=== PATIENT | female | born 1980 | race Caucasian/White ===

== ENCOUNTER 2018-01-02 09:05 | Inpatient (IN) | payer BC ==
[2018-01-02 09:09] VITALS: BMI 29.5
[2018-01-02 09:13] VITALS: O2SAT 99
--- NOTE | 2018-01-02 09:13 | ED PDOC ---
Arrival/HPI - General Chief Complaint: Psychiatric Evaluation Time Seen by Provider: 01/02/18 09:08 - History of Present Illness Associated Symptoms (Text): 01/02/18 09:11 Patient was seen and evaluated at another hospital emergency department and had a crisis evaluation there. She was medically cleared previously. Therefore, no medical clearance is necessary here. No exam or review of systems is necessary. Patient states that she is depressed and had a plan to get in her car and drive off a tejas. She is aware that she is being admitted to the psychiatric floor here. Family/Social History Family/Social History: Unknown Family HX Allergies/Home Meds Allergies/Adverse Reactions: Allergies No Known Allergies Allergy (Verified 01/02/18 09:09) Disposition/Present on Arrival - Present on Arrival Any Indicators Present on Arrival: No History of DVT/PE: No History of Uncontrolled Diabetes: No Urinary Catheter: No History of Decub. Ulcer: No - Disposition Have Diagnosis and Disposition been Completed?: Yes Diagnosis: Depression, Suicidal ideation Disposition: HOSPITALIZED Disposition Time: 09:12 Patient Plan: Admission Condition: GOOD Forms: Acceptd (Burmese)
[2018-01-02] MEDS ORDERED: Magnesium Hydroxide Susp 30 ml UD PO PRN (10:32)
[2018-01-02] MEDS ORDERED: Alum-Mag Hydrox-Simethicone Susp (30 mL) PO PRN (10:32)
[2018-01-03 07:25] VITALS: RESP 20
[2018-01-03] MEDS ORDERED: Apap-Butalbital-Caffeine 325-50-40mg Tab PO PRN (13:16)
--- NOTE | 2018-01-03 13:41 | PCM.PSYCH ---
Initial Psychiatric Evaluation - Initial Psychiatric Evaluation Type of Admission: Voluntary Legal Status: Capacity (pt has capacity to sign consent for treatment) Chief Complaint (in patient's own words): "I thought my daughter would be better off without me, I also had thoughts of walking into the traffic, my aunt suggested me to go to the hospital". Patient's Reaction to Hospitalization: pt was transferred from [facility] for evaluation and stabilization of depressive symptoms, possible suicidal ideation. History of Present Illness and Precipitating Events: Shortly pt is 37here old female, self reported h/o anxiety and depression, denied previous psychiatric admissions, currently lives with her daughter, pt is on disability for the past 4weeks, was prescribed psychotropic medications by her PMD, has therapist whom she sees [id number], was transferred from the [facility] for evaluation of depressive symptoms, possible suicidal ideation and hopelessness, pt said that she had thoughts of driving off a tejas and thought of jumping in front of truck, pt also felt that her 13yo daughter "will be better off without me". pt reported being compliant with meds, pt required further evaluation and stabilization, meds titration. pt was seen at the treatment team meeting, transfer paper reviewed, discussed with staff. pt presented with acceptable personal hygiene, careless about her appearance, no make up on, looked older than chronological age. pt has good ADLs. pt said after some viral infection in October 2017 she she started to feel depressed, she had weakness, low energy, was not able to function, pt said her anxiety was getting worse as well, pt started to have frequent panic attacks, her PMD prescribed her prozac 20mg po daily, and Klonopin 1mg po tid, pt said she was feeling progressively worse, had panic attacks, pt said that most recently she was feeling hopeless and helpless, guilty that she is a bad mother. Pt believes that her anxiety and depression led her to have a syncopal episode back in October when pt was hospitalized on the medical floor. Pt reported all labs came back negative. pt said that the started to have thoughts of suicide and had "vision of myself driving into the tejas", pt also said she tried to distract herself from those thoughts and take a walk but had thoughts of jumping in front of the truck, pt shared those thoughts with her aunts and "she brought me to the hospital. (pt's 13 you daughter is with her aunt, pt gave permission to speak to her aunt). PT reports today 01[birth year]03[birth year]18 is the birthday of her daughter's father and tomorrow 07/14 is the anniversary of her mother's . PT reports her mother due to Lupus, COPD, and emphysema. "it is a bad season for me" pt denied v/t/a hallucinations, denied paranoid ideation, does not appear to be psychotic. no manic symptoms elicited. Pt denied using drugs, denies drinking alcohol, smokes e-cigarettes. past psych h/o: pt denied previous psych admissions, denied h/o suicidal attempts in the past. currently sees psychologist [id number]. Medical h/o: pt suffers from migraine headaches. pt takes Excedrin which is not available in the hospital. Family h/o: father suffers from depression/anxiety, is on prozac, tolerates well. mother's cousin committed suicide. Pt gave consent to speak to her aunt, Car Victor [phone]. Pt reports she was on disability and went back to work on December 27, 2017. 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 Vital Signs Temp Pulse Resp BP Pulse Ox 01/03/18 07:24 97.8 F 56 L 20 103/65 01/02/18 16:15 63 108/67 01/02/18 10:38 18 01/02/18 09:11 97.5 F L 55 L 18 112/68 99 Current Medications: Active Medications Generic Name Dose Route Start Last Admin Trade Name Freq PRN Reason Stop Dose Admin Acetaminophen 650 mg 01/02/18 10:32 Tylenol 325mg Tab PO Q4 PRN Pain, Mild (1-3) Al Hydrox/Mg Hydrox/Simethicone 30 ml 01/02/18 10:32 Maalox Plus 30 Ml PO DAILY PRN Upset Stomach Clonazepam 1 mg 01/03/18 22:00 Klonopin PO HS RAYMOND Protocol Clonazepam 1 mg 01/03/18 16:00 Klonopin PO BID RAYMOND Protocol Fluoxetine HCl 30 mg 01/03/18 11:30 Prozac PO DAILY RAYMOND Magnesium Hydroxide 30 ml 01/02/18 10:32 Milk Of Magnesia PO DAILY PRN Constipation Nicotine 1 patch 01/03/18 08:00 01/03/18 08:56 Nicoderm Cq TD 1 patch DAILY RAYMOND Administration Zaleplon 5 mg 01/02/18 11:20 01/02/18 22:59 Sonata PO 5 mg HS PRN Administration Insomnia Past Psychiatric History - Past Psychiatric History Previous Treatment History: None Prior Professional Help: see HPI Prior Psychiatric Treatment: see HPI At what hospital: see HPI Duration: see HPI Nature of Treatment: see HPI Explanation of prior treatment: see HPI History of Abuse: see HPI History of ETOH/Drug Use: see HPI History of Family Illness: see HPI Pertinent Medical Hx (Current Medical&Sleep Prob, Allergies): Allergies Allergy/AdvReac Type Severity Reaction Status Date / Time No Known Allergies Allergy Verified 01/02/18 10:34 Clonazepam [Klonopin] 1 mg PO TID 01/02/18 FLUoxetine [Fluoxetine HCl] 20 mg PO DAILY 01/02/18 Nicotine [Nicotine Patch] 1 each TD DAILY 01/02/18 Omeprazole Magnesium [Prilosec Otc] 20 mg PO DAILY 01/02/18 Review of Systems - Review of Systems Systems not reviewed;Unavailable: Acuity of Condition - EENT Eyes: As Per HPI Ears: As Per HPI Nose/Mouth/Throat: As Per HPI - Breasts Breasts: As Per HPI - Cardiovascular Cardiovascular: As Per HPI - Respiratory Respiratory: As Per HPI - Gastrointestinal Gastrointestinal: As Per HPI - Genitourinary Genitourinary: As Per HPI - Reproductive: Female Reproductive:Female: As Per HPI - Menstruation Menstruation: As Per HPI - Musculoskeletal Musculoskeletal: As Par HPI - Integumentary Integumentary: As Per HPI - Neurological Neurological: As Per HPI - Psychiatric Psychiatric: As Per HPI - Endocrine Endocrine: As Per HPI - Hematologic/Lymphatic Hematologic: As Per HPI Mental Status Examination - Personal Presentation Personal Presentation: Looks older than stated age - Affect Affect: Flat - Motor Activity Motor Activity: Psychomotor Retardation - Reliability in Providing Information Reliability in Providing Information: Fair - Speech Speech: Organized - Mood Mood: Depressed, Anxious - Formal Thought Process Formal Thought Process: No Impairment - Obsessions/Compulsions Obsessions: None Compulsions: None - Cognitive Functions Orientation: Person, Place Sensorium: Alert Attention/Concentration: Easily distracted Abstract Thinking: As evidence by abstract perception of proverbs Estimate of Intelligence: Average Judgement: Intact, as evidence by: Insight regarding need for hospitalization - Risk Risk: Diminished functioning - Strength & Assets Inventory Strength & Assets Inventory: Intelligence, Family support, Employment history, Cooperative, Other (good physical health, no drugs involved, pt is not psychotic ) - Limitations Limitations: Other DSM 5 DX - DSM 5 DSM 5 Diagnosis: MDD, single episode severe with no psychosis r/o CEASAR r/o panic disorder - Recommended/Plan of Treatment Treatment Recommendations and Plan of Treatment: Milieu/structure/supportive therapy Clonazepam [Klonopin] 1 mg PO TID for anxiety FLUoxetine [Fluoxetine HCl] 20 mg PO DAILY will be increased to 30mg daily for depression and anxiety Nicotine [Nicotine Patch] 1 each TD DAILY (as per pt's request, pt was smoking e -cigarettes) fioricet prn for migraine headaches sonata prn for insomnia medical consult and neurology consult will be considered Family involvement Follow up on labs Will monitor closely Pt was educated about risk/benefits and alternatives of medications, coping strategies (safety plan, suicide prevention), relapse prevention, importance of follow up with psychiatrist and therapist, stay away from drugs/alcohol/smoking Projected ELOS: 7days Prognosis: fair Discharge Plan and Discharge Criteria: Pt will be not depressed or manic, will be more hopeful, will be not psychotic or anxious, will be not having thoughts of harming self or others, will be tolerating medications well, will not have major side effects, will be able to function, will not pose threat to self or others. - Smoking Cessation Smoking Cessation Initiated: Yes
[2018-01-04 06:59] LABS: BASO # 0.02 K/mm3 (0.0-2.0); BASO % 0.3 % (0.0-3.0); EOS # 0.6 (0.0-0.7); EOS % 10.9 % (1.5-5.0); GRAN # 2.48 (1.4-6.5); GRAN % 42.2 % (50.0-68.0); HEMOGLOBIN 12.5 g/dL (12.0-16.0); LYMPH # 2.2 (1.2-3.4); LYMPH % 38.1 % (22.0-35.0); MEAN CELL VOLUME 86.6 fl (80.0-105.0); MEAN CORPUSCULAR HEMOGLOBIN 28.5 pg (25.0-35.0); MEAN CORPUSCULAR HGB CONC 32.9 g/dl (31.0-37.0); MEAN PLATELET VOLUME 10.1 fl (7.0-11.0); MONO # 0.5 (0.1-0.6); MONO % 8.5 % (1.0-6.0); RBC 4.39 10^6/uL (3.5-6.1); RED CELL DISTRIBUTION WIDTH 12.2 % (11.5-14.5); WHITE BLOOD COUNT 5.9 10^3/ul (4.5-11.0)
[2018-01-04 07:43] LABS: ALB/GLOB RATIO 1.2 (1.1-1.8); ALBUMIN 3.4 g/dL (3.0-4.8); ALT/SGPT 52 U/L (7-56); AST/SGOT 30 U/L (14-36); BLOOD UREA NITROGEN 8 mg/dL (7-21); CALCIUM 9.1 mg/dL (8.4-10.5); GFR AFRICAN-AMERICAN > 60; GFR NON-AFRICAN AMERICAN > 60
--- NOTE | 2018-01-04 14:01 | PCM.PYCHPN ---
Psychiatric Progress Note - Psychiatric Progress Note Patient seen today, length of contact: 30min Patient Chief Complaint: "I am very depressed, I want to feel alive again" Problems Identified/Issues Discussed: Suicide/ homicide prevention, past psychiatric h/o, current psychiatric symptoms , medical problems, risk/benefits and alternatives of medications, medications compliance, coping strategies, substance abuse h/o, relapse prevention, importance of follow up with psychiatrist and therapist, discharge plan. Medical Problems: hypotension migraine Headaches Diagnostic Results: 01/04/18 05:50 01/04/18 05:50 Lab Results 01/04/18 05:50: WBC 5.9, RBC 4.39, Hgb 12.5, Hct 38.0, MCV 86.6, MCH 28.5, MCHC 32.9, RDW 12.2, Plt Count 221, MPV 10.1, Gran % 42.2 L, Lymph % (Auto) 38.1 H, Bacon % (Auto) 8.5 H, Eos % (Auto) 10.9 H, Baso % (Auto) 0.3, Gran # 2.48, Lymph # (Auto) 2.2, Bacon # (Auto) 0.5, Eos # (Auto) 0.6, Baso # (Auto) 0.02 01/04/18 05:50: Sodium 140, Potassium 3.8, Chloride 104, Carbon Dioxide 28, Anion Gap 11, BUN 8, Creatinine 0.8, Est GFR ( Amer) > 60, Est GFR (Non- Af Amer) > 60, Random Glucose 99, Calcium 9.1, Total Bilirubin 0.2, AST 30, ALT 52, Alkaline Phosphatase 64, Total Protein 6.3, Albumin 3.4, Globulin 2.8, Albumin/Globulin Ratio 1.2 Vital Signs Temp Pulse Resp BP Pulse Ox 01/04/18 06:42 97.8 F 52 L 20 93/55 L 01/03/18 15:36 53 L 93/57 L 01/03/18 07:24 97.8 F 56 L 20 103/65 01/02/18 16:15 63 108/67 01/02/18 10:38 18 01/02/18 09:11 97.5 F L 55 L 18 112/68 99 DSM 5 Symptoms Update: Shortly pt is 37here old female, self reported h/o anxiety and depression, denied previous psychiatric admissions, currently lives with her daughter, pt is on disability for the past 4weeks, was prescribed psychotropic medications by her PMD, has therapist whom she sees [id number], was transferred from the [facility] for evaluation of depressive symptoms, possible suicidal ideation and hopelessness, pt said that she had thoughts of driving off a te[place] and thought of jumping in front of truck, pt also felt that her 13yo daughter "will be better off without me". pt reported being compliant with meds, pt required further evaluation and stabilization, meds titration. pt was seen at the treatment team meeting room, pt presented to be depressed, difficulties to stay focused. pt c/o mood swings since August, reported to feel irritable, but pt denied manic symptoms. pt said in July she was feeling "more energetic, I was feeling content", pt wants to feel the same way back again. pt denied suicidal ideation now, but reported to feel very depressed. pt said her sleep was "sporadic", pt had low BP, most likely due to Fioricet which will be d/c, ibuprofen was started. BP during the evaluation was 112/65. pt reported having a gambling problems in the past, but "I am not gambling for the past 4years". pt reported being financially independent. as per staff pt appears to be depressed, but trying to attend groups. collaterals from pt's aunt. pt was feeling depressed, since August prior to this hospitalization pt verbalized thoughts of harming self, but pt initiated this admission. pt's brother relapsed on drugs and pt's father is depressed. as per aunt pt had a lot on her plate. See SW note for more detailed information. Patient tolerated medications well, no worsening of suicidal ideations observed on Prozac. DSM 5 Diagnosis: MDD, single episode severe with no psychosis r/o CEASAR r/o panic disorder Medication Change: Yes (Prozac was increased yesterday, Fioricet discontinued) Medical Record Reviewed: Yes Consults ordered or reviewed: patient is relatively healthy no need for medical consultation in case off blood pressure will continue decreasing, will consider to call for medical consultation. Mental Status Examination - Cognitive Function Orientation: Person, Place Memory: Intact Attention: Poor Concentration: Poor Association: WNL Fund of Knowledge: WNL - Mood Mood: Depressed, Anxious - Affect Affect: Flat - Speech Speech: Appropriate (but low volume, underproductive) - Formal Thought Process Formal Thought Process: No Impairment - Suicidal Ideation Suicidal Ideation: No - Homicidal Ideation Homicidal Ideation: No Goal/Treatment Plan - Goal/Treatment Plan Need for Continued Stay: Remain at risks for inpatient hospitalization, Severe depression anxiety, Discharge may exacerbated symptoms, Severe functional impairment Progress Toward Problem(s) and Goals/Treatment Plan: Milieu/structure/supportive therapy Clonazepam [Klonopin] 1 mg PO TID for anxiety FLUoxetine [Fluoxetine HCl] 30mg daily for depression and anxiety Nicotine [Nicotine Patch] 1 each TD DAILY (as per pt's request, pt was smoking e -cigarettes) fioricet prn for migraine headaches, was discontinued sonata 5mg prn for insomnia medical consult and neurology consult will be considered Family involvement Follow up on labs Will monitor closely Pt was educated about risk/benefits and alternatives of medications, coping strategies (safety plan, suicide prevention), relapse prevention, importance of follow up with psychiatrist and therapist, stay away from drugs/alcohol/smoking Estimated Date of D/C: 01/12/18 (will monitor closely)
--- NOTE | 2018-01-04 15:14 | PCM.BM ---
Treatment Plan Problems - Problems identified on initial assessmt Hopelessness Date Initiated: 01/02/18 Time Initiated: 15:13 Assessment reference: NA Status: Active Priority: 1 Worthlessness Date Initiated: 01/02/18 Time Initiated: 15:13 Assessment reference: NA Status: Active Priority: 2 Ineffective Coping Date Initiated: 01/02/18 Time Initiated: 15:13 Assessment reference: NA Status: Active Priority: 3 - Milieu Protocol Maintain good personal hygiene: every shift Encourage regular showers, every shift Remind patient to perform daily oral care, every shift Assist patient to perform ADL's Conduct patient checks and document Observation sheet: Q15 minutes Maintain personal safety: daily Educate patient to report safety concerns to staff, daily Monitor environment for contraband/sharps Medication safety: Monitor for expected outcome, potential side effects: daily, Assess barriers to learning: daily, Assess readiness for medication education: daily Milieu Narrative: Milieu/structure/supportive therapy Clonazepam [Klonopin] 1 mg PO TID for anxiety FLUoxetine [Fluoxetine HCl] 30mg daily for depression and anxiety Nicotine [Nicotine Patch] 1 each TD DAILY (as per pt's request, pt was smoking e -cigarettes) fioricet prn for migraine headaches, was discontinued sonata 5mg prn for insomnia medical consult and neurology consult will be considered Family involvement Follow up on labs Will monitor closely Pt was educated about risk/benefits and alternatives of medications, coping strategies (safety plan, suicide prevention), relapse prevention, importance of follow up with psychiatrist and therapist, stay away from drugs/alcohol/smoking Family Contact Family involvement: Family/SO is involved Family contact: Patient agrees to contact Family contact name: Car Sinha(aunt) [phone] Discharge/Continuing Care - Discharge Discharge Criteria: Tolerates medication w/o severe side effects, Free of Suicidal thoughts, Free of Homicidal thoughts, Normal sleep pattern, Ability to care for self, No longer exhibiting s/s of withdrawal, Reduction of target symptoms Discharge to:: Home - Treatment Team Participation Patient/Family/SO Statement: Milieu/structure/supportive therapy Clonazepam [Klonopin] 1 mg PO TID for anxiety FLUoxetine [Fluoxetine HCl] 30mg daily for depression and anxiety Nicotine [Nicotine Patch] 1 each TD DAILY (as per pt's request, pt was smoking e -cigarettes) fioricet prn for migraine headaches, was discontinued sonata 5mg prn for insomnia medical consult and neurology consult will be considered Family involvement Follow up on labs Will monitor closely Pt was educated about risk/benefits and alternatives of medications, coping strategies (safety plan, suicide prevention), relapse prevention, importance of follow up with psychiatrist and therapist, stay away from drugs/alcohol/smoking
--- NOTE | 2018-01-05 15:17 | PCM.PYCHPN ---
Psychiatric Progress Note - Psychiatric Progress Note Patient seen today, length of contact: 30min Patient Chief Complaint: "I was not able to sleep, I am exhausted..." Problems Identified/Issues Discussed: Suicide/ homicide prevention, past psychiatric h/o, current psychiatric symptoms , medical problems, risk/benefits and alternatives of medications, medications compliance, coping strategies, substance abuse h/o, relapse prevention, importance of follow up with psychiatrist and therapist, discharge plan. Medical Problems: hypotension migraine Headaches Diagnostic Results: 01/04/18 05:50 01/04/18 05:50 Lab Results 01/04/18 05:50: WBC 5.9, RBC 4.39, Hgb 12.5, Hct 38.0, MCV 86.6, MCH 28.5, MCHC 32.9, RDW 12.2, Plt Count 221, MPV 10.1, Gran % 42.2 L, Lymph % (Auto) 38.1 H, Liberty % (Auto) 8.5 H, Eos % (Auto) 10.9 H, Baso % (Auto) 0.3, Gran # 2.48, Lymph # (Auto) 2.2, Liberty # (Auto) 0.5, Eos # (Auto) 0.6, Baso # (Auto) 0.02 01/04/18 05:50: Sodium 140, Potassium 3.8, Chloride 104, Carbon Dioxide 28, Anion Gap 11, BUN 8, Creatinine 0.8, Est GFR ( Amer) > 60, Est GFR (Non- Af Amer) > 60, Random Glucose 99, Calcium 9.1, Total Bilirubin 0.2, AST 30, ALT 52, Alkaline Phosphatase 64, Total Protein 6.3, Albumin 3.4, Globulin 2.8, Albumin/Globulin Ratio 1.2 Vital Signs Temp Pulse Resp BP Pulse Ox 01/04/18 06:42 97.8 F 52 L 20 93/55 L 01/03/18 15:36 53 L 93/57 L 01/03/18 07:24 97.8 F 56 L 20 103/65 01/02/18 16:15 63 108/67 01/02/18 10:38 18 01/02/18 09:11 97.5 F L 55 L 18 112/68 99 DSM 5 Symptoms Update: Shortly pt is 37here old female, self reported h/o anxiety and depression, denied previous psychiatric admissions, currently lives with her daughter, pt is on disability for the past 4weeks, was prescribed psychotropic medications by her PMD, has therapist whom she sees [id number], was transferred from the [facility] for evaluation of depressive symptoms, possible suicidal ideation and hopelessness, pt said that she had thoughts of driving off a tejas and thought of jumping in front of truck, pt also felt that her 13yo daughter "will be better off without me". pt reported being compliant with meds, pt required further evaluation and stabilization, meds titration. pt was seen at the treatment team meeting room, pt presented to be depressed, difficulties to stay focused, pt said that her energy is little better, pt c/o insomnia + pt's BP was running low, RNs were holding HS klonopin, as a result pt was not sleeping feeling "exhausted". dose of klonopin decreased, staff advised to give this med, pt also advised asked for help if she feels dizzy, pt verbalized understanding. pt will be seen by medical team tomorrow for Low BP. pt does not have worsening of SI on prozac. as per staff pt appears to be depressed, but trying to attend groups. Patient tolerated medications well, no worsening of suicidal ideations observed on Prozac. DSM 5 Diagnosis: MDD, single episode severe with no psychosis r/o CEASAR r/o panic disorder Medication Change: Yes (klonopin was decreased) Medical Record Reviewed: Yes Consults ordered or reviewed: patient is relatively healthy no need for medical consultation in case off blood pressure will continue decreasing, will consider to call for medical consultation. Mental Status Examination - Cognitive Function Orientation: Person, Place Memory: Intact Attention: Poor Concentration: Poor Association: WNL Fund of Knowledge: WNL - Mood Mood: Depressed, Anxious - Affect Affect: Flat - Speech Speech: Appropriate (but low volume, underproductive) - Formal Thought Process Formal Thought Process: No Impairment - Suicidal Ideation Suicidal Ideation: No - Homicidal Ideation Homicidal Ideation: No Goal/Treatment Plan - Goal/Treatment Plan Need for Continued Stay: Remain at risks for inpatient hospitalization, Severe depression anxiety, Discharge may exacerbated symptoms, Severe functional impairment Progress Toward Problem(s) and Goals/Treatment Plan: Milieu/structure/supportive therapy Clonazepam [Klonopin] 1 mg PO BID for anxiety 0.5mg hs prn for anxiety and insomnia FLUoxetine [Fluoxetine HCl] 30mg daily for depression and anxiety Nicotine [Nicotine Patch] 1 each TD DAILY (as per pt's request, pt was smoking e -cigarettes) fioricet prn for migraine headaches, was discontinued sonata 5mg prn for insomnia medical consult was called neurology consult will be considered Family involvement Follow up on labs Will monitor closely Pt was educated about risk/benefits and alternatives of medications, coping strategies (safety plan, suicide prevention), relapse prevention, importance of follow up with psychiatrist and therapist, stay away from drugs/alcohol/smoking Estimated Date of D/C: 01/12/18 (will monitor closely)
--- NOTE | 2018-01-06 11:38 | PN ---
DATE: SUBJECTIVE: The patient is in Behavioral Care Unit, [facility] in [place], room 514, bed 2. The patient was admitted for depression, suicidal tendency. The patient has gastritis by history. The patient is also smoker. She has nicotine dependence. The patient was seen this morning and I talked to the patient. The patient denies any acute medical symptoms, but the patient's blood pressure was found to be at hypotensive levels and we will address that issue. PAST HISTORY: The patient has not had any surgery in the past. The patient has had treatment for depression in the past. The patient denies any history of asthma, denies history of diabetes. PHYSICAL EXAMINATION: VITAL SIGNS: The patient's pulse is 52, blood pressure is 96/58, patient's respirations are 20, O2 sat 100% on room air. HEENT: Patient's head is normocephalic. NECK: The thyroid is not enlarged. No carotid pulses and no lymphadenopathy. HEART: Normal sinus rhythm. S1 and S2 present. No murmurs. LUNGS: Trachea is central. Breath sound vesicular. No adventitious sounds are heard. ABDOMEN: Soft. Liver and spleen not palpable. GENITOURINARY: The patient has finished the menstruation. CENTRAL NERVOUS SYSTEM: The patient is conscious, rational, oriented. No cranial nerve palsies or motor sensory deficits are noted at this time. LABORATORY DATA: The white count is in normal limits. The patient's differential shows granulocyte count of 42.2%. The patient had 10.9 eosinophils. THE PATIENT DOES HAVE SOME UNDERLYING ALLERGY. The patient's urinalysis was not done, it will be done according to the nurses today. MEDICATIONS: We reviewed the medications, the patient is currently on Klonopin, Mylanta, Maalox, antacids. The patient is on magnesium oxide, milk of magnesia for constipation. The patient is on ibuprofen, Motrin for headache. The patient gets nicotine patch for nicotine withdrawal. The patient gets 30 mg of chlorhexidine. His serotonin reuptake is negative. ASSESSMENT AND PLAN: The patient will be placed on Florinef 0.1 mg b.i.d. and we will monitor the blood pressure of the patient per shift and if the systolic pressure exceeds 120 mmHg, they can hold the Florinef. The patient's prognosis is guarded. Condition seemed to be clinically stable in followup, Ronaldo Botello MD [facility] # [id number]
--- NOTE | 2018-01-06 15:31 | PCM.PYCHPN ---
Psychiatric Progress Note - Psychiatric Progress Note Patient seen today, length of contact: 30min Patient Chief Complaint: "I slept better today" Problems Identified/Issues Discussed: Suicide/ homicide prevention, past psychiatric h/o, current psychiatric symptoms , medical problems, risk/benefits and alternatives of medications, medications compliance, coping strategies, substance abuse h/o, relapse prevention, importance of follow up with psychiatrist and therapist, discharge plan. Medical Problems: hypotension migraine Headaches Diagnostic Results: 01/04/18 05:50 01/04/18 05:50 Lab Results 01/04/18 05:50: WBC 5.9, RBC 4.39, Hgb 12.5, Hct 38.0, MCV 86.6, MCH 28.5, MCHC 32.9, RDW 12.2, Plt Count 221, MPV 10.1, Gran % 42.2 L, Lymph % (Auto) 38.1 H, [place] % (Auto) 8.5 H, Eos % (Auto) 10.9 H, Baso % (Auto) 0.3, Gran # 2.48, Lymph # (Auto) 2.2, [place] # (Auto) 0.5, Eos # (Auto) 0.6, Baso # (Auto) 0.02 01/04/18 05:50: Sodium 140, Potassium 3.8, Chloride 104, Carbon Dioxide 28, Anion Gap 11, BUN 8, Creatinine 0.8, Est GFR ( Amer) > 60, Est GFR (Non- Af Amer) > 60, Random Glucose 99, Calcium 9.1, Total Bilirubin 0.2, AST 30, ALT 52, Alkaline Phosphatase 64, Total Protein 6.3, Albumin 3.4, Globulin 2.8, Albumin/Globulin Ratio 1.2 Vital Signs Temp Pulse Resp BP Pulse Ox 01/04/18 06:42 97.8 F 52 L 20 93/55 L 01/03/18 15:36 53 L 93/57 L 01/03/18 07:24 97.8 F 56 L 20 103/65 01/02/18 16:15 63 108/67 01/02/18 10:38 18 01/02/18 09:11 97.5 F L 55 L 18 112/68 99 Temp Pulse Resp BP Pulse Ox 97.8 F 52 L 20 96/58 L 99 01/06/18 07:09 01/06/18 07:09 01/06/18 07:09 01/06/18 07:09 01/02/18 09:11 DSM 5 Symptoms Update: Shortly pt is 37here old female, self reported h/o anxiety and depression, denied previous psychiatric admissions, currently lives with her daughter, pt is on disability for the past 4weeks, was prescribed psychotropic medications by her PMD, has therapist whom she sees [id number], was transferred from the [facility] for evaluation of depressive symptoms, possible suicidal ideation and hopelessness, pt said that she had thoughts of driving off a tejas and thought of jumping in front of truck, pt also felt that her 13yo daughter "will be better off without me". pt reported being compliant with meds, pt required further evaluation and stabilization, meds titration. pt was seen at the dinning area, pt presented to be depressed, difficulties to stay focused, pt said that her energy is little better, pt said that it was the first night when she slept, pt's BP was running low, awaiting for medical consult. pt does not have worsening of SI on prozac, "but I still have crazy thoughts about my depression". as per staff pt appears to be depressed, but trying to attend groups. Patient tolerated medications well, no worsening of suicidal ideations observed on Prozac. DSM 5 Diagnosis: MDD, single episode severe with no psychosis r/o CEASAR r/o panic disorder Medication Change: Yes (prozac increased) Medical Record Reviewed: Yes Mental Status Examination - Cognitive Function Orientation: Person, Place Memory: Intact Attention: Poor Concentration: Poor Association: WNL Fund of Knowledge: WNL - Mood Mood: Depressed ("I have crazy thoughts"), Anxious - Affect Affect: Flat - Speech Speech: Appropriate (but low volume, underproductive) - Formal Thought Process Formal Thought Process: No Impairment - Suicidal Ideation Suicidal Ideation: No - Homicidal Ideation Homicidal Ideation: No Goal/Treatment Plan - Goal/Treatment Plan Need for Continued Stay: Remain at risks for inpatient hospitalization, Severe depression anxiety, Discharge may exacerbated symptoms, Severe functional impairment Progress Toward Problem(s) and Goals/Treatment Plan: Milieu/structure/supportive therapy Clonazepam [Klonopin] 1 mg PO BID for anxiety 0.5mg hs prn for anxiety and insomnia FLUoxetine [Fluoxetine HCl] 40mg daily for depression and anxiety Nicotine [Nicotine Patch] 1 each TD DAILY (as per pt's request, pt was smoking e -cigarettes) sonata 5mg prn for insomnia medical consult was called neurology consult will be considered Family involvement Follow up on labs Will monitor closely Pt was educated about risk/benefits and alternatives of medications, coping strategies (safety plan, suicide prevention), relapse prevention, importance of follow up with psychiatrist and therapist, stay away from drugs/alcohol/smoking Estimated Date of D/C: 01/12/18 (will monitor closely)
[2018-01-07 06:48] VITALS: BP 104/70
--- NOTE | 2018-01-07 13:02 | PCM.PYCHPN ---
Psychiatric Progress Note - Psychiatric Progress Note Patient seen today, length of contact: 30min Patient Chief Complaint: "today it is actually the first day when I feel little better" Problems Identified/Issues Discussed: Suicide/ homicide prevention, past psychiatric h/o, current psychiatric symptoms , medical problems, risk/benefits and alternatives of medications, medications compliance, coping strategies, substance abuse h/o, relapse prevention, importance of follow up with psychiatrist and therapist, discharge plan. Medical Problems: hypotension migraine Headaches Diagnostic Results: 01/04/18 05:50 01/04/18 05:50 Lab Results 01/04/18 05:50: WBC 5.9, RBC 4.39, Hgb 12.5, Hct 38.0, MCV 86.6, MCH 28.5, MCHC 32.9, RDW 12.2, Plt Count 221, MPV 10.1, Gran % 42.2 L, Lymph % (Auto) 38.1 H, [place] % (Auto) 8.5 H, Eos % (Auto) 10.9 H, Baso % (Auto) 0.3, Gran # 2.48, Lymph # (Auto) 2.2, [place] # (Auto) 0.5, Eos # (Auto) 0.6, Baso # (Auto) 0.02 01/04/18 05:50: Sodium 140, Potassium 3.8, Chloride 104, Carbon Dioxide 28, Anion Gap 11, BUN 8, Creatinine 0.8, Est GFR ( Amer) > 60, Est GFR (Non- Af Amer) > 60, Random Glucose 99, Calcium 9.1, Total Bilirubin 0.2, AST 30, ALT 52, Alkaline Phosphatase 64, Total Protein 6.3, Albumin 3.4, Globulin 2.8, Albumin/Globulin Ratio 1.2 Vital Signs Temp Pulse Resp BP Pulse Ox 01/04/18 06:42 97.8 F 52 L 20 93/55 L 01/03/18 15:36 53 L 93/57 L 01/03/18 07:24 97.8 F 56 L 20 103/65 01/02/18 16:15 63 108/67 01/02/18 10:38 18 01/02/18 09:11 97.5 F L 55 L 18 112/68 99 Temp Pulse Resp BP Pulse Ox 97.8 F 52 L 20 96/58 L 99 01/06/18 07:09 04/12/18 07:09 01/06/18 07:09 01/06/18 07:09 01/02/18 09:11 Temp Pulse Resp BP Pulse Ox 97.4 F L 52 L 20 104/70 99 01/07/18 06:47 01/07/18 06:47 01/07/18 06:47 01/07/18 06:47 01/02/18 09:11 DSM 5 Symptoms Update: Shortly pt is 37here old female, self reported h/o anxiety and depression, denied previous psychiatric admissions, currently lives with her daughter, pt is on disability for the past 4weeks, was prescribed psychotropic medications by her PMD, has therapist whom she sees [id number], was transferred from the [facility] ER for evaluation of depressive symptoms, possible suicidal ideation and hopelessness, pt said that she had thoughts of driving off a tejas and thought of jumping in front of truck, pt also felt that her 13yo daughter "will be better off without me". pt reported being compliant with meds, pt required further evaluation and stabilization, meds titration. pt was seen at the treatment team meeting, patient presented to be depressed, but was able to smile for a few times, reported "I think it is a first day when I feel kind of better", pt was able to concentrate during the conversation. pt was seen by medical team, esperanza Naylor for low BP. pt said she slept better over night, requested sonata to be d/c. pt said she is worried about her daughter, at the same time pt said her daughter will go for the sleep over to her friend's house and pt's aunt will come over this weekend to visit pt. pt does not have worsening of SI on prozac, pt said that she still has "crazy depressive thoughts, for example that I will never get better". as per staff pt appears to be less depressed, trying to attend groups. Patient tolerated medications well, no worsening of suicidal ideations observed on Prozac. DSM 5 Diagnosis: MDD, single episode severe with no psychosis r/o CEASAR r/o panic disorder Medication Change: Yes (prozac increased) Medical Record Reviewed: Yes Consults ordered or reviewed: patient is relatively healthy no need for medical consultation in case off blood pressure will continue decreasing, will consider to call for medical consultation. Mental Status Examination - Cognitive Function Orientation: Person, Place Memory: Intact Attention: Poor (some improvement) Concentration: Poor (some improvement) Association: WNL Fund of Knowledge: WNL - Mood Mood: Depressed ("I have crazy thoughts that I will never get better, but they are sporadic"), Anxious (less) - Affect Affect: Flat - Speech Speech: Appropriate (but low volume, underproductive) - Formal Thought Process Formal Thought Process: No Impairment - Suicidal Ideation Suicidal Ideation: No - Homicidal Ideation Homicidal Ideation: No Goal/Treatment Plan - Goal/Treatment Plan Need for Continued Stay: Remain at risks for inpatient hospitalization, Severe depression anxiety, Discharge may exacerbated symptoms, Severe functional impairment Progress Toward Problem(s) and Goals/Treatment Plan: Milieu/structure/supportive therapy Clonazepam [Klonopin] 1 mg PO BID for anxiety 0.5mg hs prn for anxiety and insomnia FLUoxetine [Fluoxetine HCl] 40mg daily for depression and anxiety Nicotine [Nicotine Patch] 1 each TD DAILY (as per pt's request, pt was smoking e -cigarettes) sakina d/c medical consult appreciated, marcy mata neurology consult will be considered Family involvement Follow up on labs Will monitor closely Pt was educated about risk/benefits and alternatives of medications, coping strategies (safety plan, suicide prevention), relapse prevention, importance of follow up with psychiatrist and therapist, stay away from drugs/alcohol/smoking Estimated Date of D/C: 01/12/18 (will monitor closely)
--- NOTE | 2018-01-07 13:44 | PN ---
DATE: SUBJECTIVE: The patient is in the Behavioral Care Unit, [facility] in [place]. The patient was admitted with depression, suicidal tendency. The patient has history of gastritis. She also has history of back pain. The patient also showed hypotension and general weakness. The patient is a smoker. She is seen this morning and she is comfortable. There are no acute symptoms today. PHYSICAL EXAMINATION: VITAL SIGNS: The pulse is 52, blood pressure 104/70, the patient's respirations are 20. LUNGS: Clear. HEART: Normal sinus rhythm. S1 and S2 present. ABDOMEN: Soft. Liver and spleen not palpable. CENTRAL NERVOUS SYSTEM: No focal deficits. The patient has Florinef to maintain systolic blood pressure. LABORATORY DATA: The patient's hemoglobin is same as what it was yesterday. Chemistry is noted in yesterday's dictation. The patient's medications are Florinef 0.1 mg b.i.d. with a cut off for systolic pressure above 120. The patient is on Klonopin, ibuprofen, nicotine patch for nicotine withdrawal. The patient is on Prozac . Her diet is heart-healthy diet. Ronaldo Botello MD
[2018-01-08 07:09] VITALS: PULSE 53; TEMP 98
--- NOTE | 2018-01-08 12:16 | PN ---
DATE: SUBJECTIVE: The patient is in the Behavioral Care Unit [facility] in [place]. The patient is seen this morning. She is resting in bed. She was admitted with depression, suicidal tendency. The patient has a history of gastritis and also has chronic hypotension. The patient is seen. PHYSICAL EXAMINATION VITAL SIGNS: Pulse is 53, blood pressure 104/70, the patient's respirations are 20. HEENT: Head is normocephalic. NECK: The thyroid is not enlarged. LUNGS: Trachea is central. Breath sounds are vesicular. No adventitious sounds. HEART: Normal sinus rhythm. S1, S2 present. No murmurs. ABDOMEN: Soft. Liver and spleen not palpable. CENTRAL NERVOUS SYSTEM: No focal deficit. The patient has no cranial or motor deficit noted. MEDICATIONS: The patient's medication consists of Florinef to maintain blood pressure and the patient is on Ativan, Motrin and nicotine patch for withdrawal of nicotine, she is a smoker. We will continue current management. Ronaldo Botello MD
--- NOTE | 2018-01-08 13:20 | PCM.PYCHDC ---
Mental Status Examination - Mental Status Examination Orientation: Person, Place, Situation Memory: Intact Mood: Depressed Affect: Constricted Speech: Appropriate Attention: WNL Concentration: WNL Association: WNL Fund of Knowledge: WNL Formal Thought Process: No Impairment Suicidal Ideation: No Current Homicidal Ideation?: No Discharge Summary - Discharge Note Reason for Hospitalization: Shortly pt is 37here old female, self reported h/o anxiety and depression, denied previous psychiatric admissions, currently lives with her daughter, pt is on disability for the past 4weeks, was prescribed psychotropic medications by her PMD, has therapist whom she sees [id number], was transferred from the [facility] for evaluation of depressive symptoms, possible suicidal ideation and hopelessness, pt said that she had thoughts of driving off a tejas and thought of jumping in front of truck, pt also felt that her 13yo daughter "will be better off without me". pt reported being compliant with meds, pt required further evaluation and stabilization, meds titration. Psychiatric History (includes Medical, Family, Personal Hx): see HPI Laboratory Data: Laboratory Tests 01/04/18 01/04/18 05:50 05:50 WBC 5.9 RBC 4.39 Hgb 12.5 Hct 38.0 MCV 86.6 MCH 28.5 MCHC 32.9 RDW 12.2 Plt Count 221 MPV 10.1 Gran % 42.2 L Lymph % (Auto) 38.1 H [place] % (Auto) 8.5 H Eos % (Auto) 10.9 H Baso % (Auto) 0.3 Gran # 2.48 Lymph # (Auto) 2.2 [place] # (Auto) 0.5 Eos # (Auto) 0.6 Baso # (Auto) 0.02 Sodium 140 Potassium 3.8 Chloride 104 Carbon Dioxide 28 Anion Gap 11 BUN 8 Creatinine 0.8 Est GFR ( Amer) > 60 Est GFR (Non-Af Amer) > 60 Random Glucose 99 Calcium 9.1 Total Bilirubin 0.2 AST 30 ALT 52 Alkaline Phosphatase 64 Total Protein 6.3 Albumin 3.4 Globulin 2.8 Albumin/Globulin Ratio 1.2 Consultations:: List each consultation separately and include: 1. Reason for request. 2. Findings. 3. Follow-up Consultations: Seen by Dr. Botello on 01/06/18, 01/07/18 and day of discharge 01/08/18 Summary of Hospital Course include:: 1. Description of specific treatment plan utilized for patients during their course of treatmen. 2. Summarize the time- course for resolution of acute symptoms and/or regressed behaviors. 3. Describe issues identified and worked on during hospitalization. 4. Describe medication utilized. 5. Describe medical problems identified and treated. 6. Reassessment of suicide risk Summary of Hospital Course: Shortly pt is 37here old female, self reported h/o anxiety and depression, denied previous psychiatric admissions, currently lives with her daughter, pt is on disability for the past 4weeks, was prescribed psychotropic medications by her PMD, has therapist whom she sees [id number], was transferred from the [facility] for evaluation of depressive symptoms, possible suicidal ideation and hopelessness, pt said that she had thoughts of driving off a tejas and thought of jumping in front of truck, pt also felt that her 13yo daughter "will be better off without me". pt reported being compliant with meds, pt required further evaluation and stabilization, meds titration. I interviewed patient at bedside to assess stability for discharge. Patient is alert and well-oriented to month, year and circumstances. Eye contact is good. Patient feels improved, denies hopelessness, suicidal thoughts or thoughts to harm others. Affect is calm and appropriately reactive. Patient denies hallucinations and is not responding to internal stimuli. Thought process is clear and coherent. She still has periods of low mood and motivation however these are not as profound or as frequent as they were before. She Patient denies acute discomfort or pain. Tolerating medications and feels they are beneficial. Would like small increase in Prozac for residual depression and klonopin to help with anxiety/sleep and activation associated with Prozac. I increased from 40 mg po daily to 50 mg po daily of prozac and klonopin was increased from 09/27/0.5 to 09/27/0.75. Delusions and paranoia were not elicited on day of discharge. - Final Diagnosis (DSM 5) Condition upon Discharge: GOOD DSM 5: MDD, single episode severe with no psychosis r/o CEASAR r/o panic disorder Disposition: HOME/ ROUTINE Follow-up Treatment Plan: Called into [facility] [place] [phone], 14 day supply + 1RF Prozac 50 mg po daily Klonopin 1 mg po bid and 0.75 mg po HS Nicoderm CQ 14 mg daily PER SOCIAL WORK NOTE: 01/08/18 11:52 - Social Work Progress Note by Lamont Tipton Jr. Patient spoke with community mental health social worker to discuss discharge. Patient reported feeling good and denied suicidal ideation at the time of meeting. Patient reported that she was ready to return to work, reunite with her daughter and go to the gym. Patient noted that she has moments of feeling down, however, has the coping skills to work through those temporary moments. Patient reported having a scheduled appointment with her psychiatrist at [facility] on December at 4:30pm. Patient indicated that she mike discuss the need for increase in medication dose at that time if necessary. Patient reported speaking with the psychiatrist on the inpatient unit and agrees with plan for discharge today (01/08/2018). - Smoking Cessation Smoking Cessation Medication prescribed: Yes - Antipsychotic Medications Pt discharged on 2 or more routine antipsychotic medications: No
== END 2018-01-08 16:34 | disposition home or self-care (01) | DRG 885 ==
LOC: ED 09:05 → ERH 09:09 → PSYC 10:15
PROVIDERS: ADMIT Psychiatry & Neurology Psychiatry; ATTEND Psychiatry & Neurology Psychiatry
DX: F32.89 Other specified depressive episodes (principal); R45.851 Suicidal ideations; F41.9 Anxiety disorder, unspecified; G43.909 Migraine, unspecified, not intractable, without status migrainosus; F17.290 Nicotine dependence, other tobacco product, uncomplicated; G47.00 Insomnia, unspecified; Z81.8 Family history of other mental and behavioral disorders; Z82.5 Family history of asthma and other chronic lower respiratory diseases; Z83.2 Family history of diseases of the blood and blood-forming organs and certain disorders involving the immune mechanism